=== PATIENT | female | born 1995 | race American Indian/Alaskan Native ===

== ENCOUNTER 2017-08-04 20:06 | Emergency (ER) | payer MEDICAID ==
[2017-08-04 20:42] VITALS: BP 136/79; PULSE 83; RESP 18; TEMP 97.8; O2SAT 100
--- NOTE | 2017-08-04 21:30 | ED PDOC ---
Arrival/HPI - General Historian: Patient <Shantel Denis - Last Filed: 08/05/17 00:32> <Edison Wetzel - Last Filed: 08/05/17 05:10> - General Chief Complaint: Medical Clearance Time Seen by Provider: 08/04/17 20:33 - History of Present Illness Narrative History of Present Illness (Text): 08/04/17 21:29 21-year-old female presents today requesting test. Patient states her last menstrual period was June 19 and she thinks she might be . Patient states she does have a history of irregular pregnancies in the past. Patient denies vaginal bleeding or vaginal discharge. Patient denies abdominal pain. Patient denies fevers or chills. No other complaints 08/04/17 21:32 (Shantel Denis) Past Medical History - Provider Review Nursing Documentation Reviewed: Yes - Travel History Have you recently traveled outside [place] w/in the past 3 mons?: No - Infectious Disease Hx of Infectious Diseases: None - Tetanus Immunization Tetanus Immunization: Unknown <Shantel Denis - Last Filed: 08/05/17 00:32> Family/Social History - Physician Review Nursing Documentation Reviewed: Yes Family/Social History: Unknown Family HX Smoking Status: Never Smoked Hx Alcohol Use: No Hx Substance Use: No <Shantel Denis - Last Filed: 08/05/17 00:32> Allergies/Home Meds <Shantel Dneis - Last Filed: 08/05/17 00:32> <Edison Wetzel - Last Filed: 08/05/17 05:10> Allergies/Adverse Reactions: Allergies No Known Allergies Allergy (Verified 08/04/17 20:31) Home Medications: Home Meds Medication Instructions Recorded Confirmed No Known Home Med 08/04/17 08/04/17 Review of Systems - Review of Systems Constitutional: absent: Fatigue, Fevers Respiratory: absent: SOB, Cough Cardiovascular: absent: Chest Pain, Palpitations Gastrointestinal: absent: Abdominal Pain, Nausea, Vomiting Genitourinary Female: absent: Dysuria Musculoskeletal: absent: Arthralgias, Back Pain, Neck Pain Skin: absent: Rash, Pruritis Neurological: absent: Headache, Dizziness Psychiatric: absent: Anxiety, Depression <Shantel Denis - Last Filed: 08/05/17 00:32> Physical Exam Vital Signs Reviewed: Yes Temperature: Afebrile Blood Pressure: Normal Pulse: Regular Respiratory Rate: Normal Appearance: Positive for: Well-Appearing, Non-Toxic, Comfortable Pain Distress: None Mental Status: Positive for: Alert and Oriented X 3 - Systems Exam Head: Present: Atraumatic Mouth: Present: Moist Mucous Membranes Neck: Present: Normal Range of Motion Respiratory/Chest: Present: Clear to Auscultation, Good Air Exchange. No: Respiratory Distress, Accessory Muscle Use Cardiovascular: Present: Regular Rate and Rhythm, Normal S1, S2. No: Murmurs Abdomen: No: Tenderness, Distention, Peritoneal Signs Neurological: Present: GCS=15, Speech Normal, Gait Normal Skin: Present: Warm, Dry, Normal Color. No: Rashes Psychiatric: Present: Alert, Oriented x 3 <Shantel Denis - Last Filed: 08/05/17 00:32> Vital Signs Temp Pulse Resp BP Pulse Ox 08/04/17 20:41 97.8 F 83 18 136/79 100 Medical Decision Making <Shantel Denis - Last Filed: 08/05/17 00:32> <Edison Wetzel - Last Filed: 08/05/17 05:10> ED Course and Treatment: 08/04/17 21:30 Patient presents today for test. Patient's LMP was june 19. Urine test is negative. Patient denies any complaints at present time states she just wants to know if she is . 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 Patient was advised to return if any concerning symptoms develop Patient verbalizes understanding of discharge instructions and need for immediate followup. all aspects of this case were discussed the attending of record. Impression: test negative follow up with the primary care physician follow up with the [employer] [facility] within the next 2 days return if any concerning symptoms develop. 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 <Edison Wetzel - Last Filed: 08/05/17 05:10> Disposition/Present on Arrival - Present on Arrival Any Indicators Present on Arrival: No History of DVT/PE: No History of Uncontrolled Diabetes: No Urinary Catheter: No History of Decub. Ulcer: No History Surgical Site Infection Following: None - Disposition Have Diagnosis and Disposition been Completed?: Yes Disposition Time: 21:27 Patient Plan: Discharge <VenessauzmaShantel - Last Filed: 08/05/17 00:32> <Edison Wetzel - Last Filed: 08/05/17 05:10> - Disposition Diagnosis: test negative Disposition: HOME/ ROUTINE Condition: GOOD Discharge Instructions (ExitCare): Tests, Symptoms Additional Instructions: follow up with the primary care physician follow up with the [employer] [facility] within the next 2 days return if any concerning symptoms develop. Referrals: Mendel Steward MD [Staff Provider] - Follow up with primary [facility] [Outside] - [facility] with [facility] [Outside] - Follow up with primary Kanwal Gleason MD [Staff Provider] - Follow up with primary Forms: [employer] ([employer])
== END 2017-08-04 21:41 | disposition home or self-care (01) ==
LOC: MERGE 20:06 → ED 20:06
DX: Z32.02 Encounter for pregnancy test, result negative (principal)